=== PATIENT | female | born 1975 | race Caucasian/White ===

== ENCOUNTER 2017-06-17 13:06 | Emergency (ER) | payer SELFPAY | END 2017-06-17 15:50 | disposition home or self-care (01) | LOC: D.ER 13:06 | DX: M54.6 Pain in thoracic spine (principal); V89.2XXA Person injured in unspecified motor-vehicle accident, traffic, initial encounter; Y93.89 Activity, other specified; Y92.410 Unspecified street and highway as the place of occurrence of the external cause; F17.200 Nicotine dependence, unspecified, uncomplicated ==

== ENCOUNTER 2018-12-25 15:03 | Emergency (ER) | payer SELFPAY ==
[~2018-12-25] VITALS: Ht 152.4 cm; Wt 45.5 kg
[2018-12-25 15:13] VITALS: Ht 152.4 cm; Wt 45.5 kg
[2018-12-25 16:03] LABS: BASOPHILS 0.4 % (0-2); EOSINOPHILS 0 % (0-7); HEMATOCRIT 35.8 % (36.0-48.0); HEMOGLOBIN 12.2 g/dL (12-16); IMMATURE GRANULOCYTES 0.2 % (0-5); LYMPHOCYTES 21.2 % (15-50); MCH 34.8 pg (26.0-34.0); MCHC 34.1 g/dL (31.0-37.0); MEAN PLATELET VOLUME 10.8 fL (7.4-10.4); MONOCYTES 11.7 % (2-11); NEUTROPHILS 66.5 % (40-80); PLATELET COUNT 182 10x3/uL (130-400); RBC 3.51 10x6/uL (4.00-5.40); RDW 14.2 % (11.5-14.5); WBC 5.2 10x3/uL (4.8-10.8)
[2018-12-25 16:24] LABS: HCG SERUM NEGATIVE (NEGATIVE)
[2018-12-25 16:32] LABS: ALBUMIN 3.2 g/dL (3.4-5.0); ALKALINE PHOSPHATASE 116 U/L (46-116); ALT (SGPT) 106 U/L (10-68); BILIRUBIN - TOTAL 1.41 mg/dL (0.2-1.3); CALC OSMOLALITY 265 mosm/kg (275-300); CALCIUM 7.5 mg/dL (8.5-10.1); CARBON DIOXIDE 21.5 mmol/L (21.0-32.0); CHLORIDE - SERUM 96 mmol/L (98-107); CREATININE - SERUM 0.6 mg/dL (0.6-1.3); GLUCOSE 110 mg/dL (74-106); POTASSIUM - SERUM 3.4 mmol/L (3.5-5.1); PROTEIN - SERUM 8.4 g/dL (6.4-8.2); SODIUM 134 mmol/L (136-145); UREA NITROGEN 5 mg/dL (7-18); eGFR NON AFRICAN AMERICAN > 90 mL/min (90-120)
[2018-12-25 18:24] LABS: APPEARANCE CLEAR (CLEAR); BILIRUBIN NEGATIVE (NEGATIVE); COLOR YELLOW (YELLOW); GLUCOSE NEGATIVE (NEGATIVE); KETONE NEGATIVE (NEGATIVE); NITRITE NEGATIVE (NEGATIVE); PROTEIN NEGATIVE (NEGATIVE); SPECIFIC GRAVITY 1.005 (1.005-1.020)
[2018-12-25 18:27] LABS: RED CELLS - URINE 0-5 /hpf (0-5); WHITE CELLS - URINE 0-5 /hpf (0-5)
[2018-12-25 18:28] LABS: BACTERIA MANY /hpf (NONE SEEN)
[2018-12-25 19:56] LABS: INR 1.08 (0.85-1.17); PROTIME 13.5 SECONDS (11.6-15.0)
[2018-12-25] MEDS ORDERED: ULTRAM50 MG PO (21:03)
[2018-12-25 21:29] VITALS: BP 154/91
[2018-12-27 13:15] LABS: HEPATITIS C ANTIBODY >11.0 S/CO RAT (0.0-0.9)
== END 2018-12-25 21:29 | disposition home or self-care (01) ==
LOC: D.ER 15:03
PROVIDERS: Emergency Medicine; Family Medicine
DX: R10.2 Pelvic and perineal pain (principal); N91.2 Amenorrhea, unspecified; F10.21 Alcohol dependence, in remission

== ENCOUNTER 2020-06-18 05:15 | Day surgery (SDC) | payer SELFPAY ==
[~2020-06-18] VITALS: Ht 152.4 cm; Wt 68.2 kg
[~2020-06-18 05:15] MED LIST: ULTRAM50 MG PO
[2020-06-18 05:29] VITALS: Ht 152.4 cm; Wt 68.2 kg
[2020-06-18 06:28] LABS: CALC OSMOLALITY 271 mosm/kg (275-300); CALCIUM 8.6 mg/dL (8.5-10.1); CARBON DIOXIDE 24.7 mmol/L (21.0-32.0); CHLORIDE - SERUM 99 mmol/L (98-107); CREATININE - SERUM 0.6 mg/dL (0.6-1.3); GLUCOSE 117 mg/dL (74-106); POTASSIUM - SERUM 3.7 mmol/L (3.5-5.1); SODIUM 136 mmol/L (136-145); UREA NITROGEN 11 mg/dL (7-18); eGFR NON AFRICAN AMERICAN > 90 mL/min (90-120)
[2020-06-18 06:30] LABS: HCG SERUM NEGATIVE (NEGATIVE)
[2020-06-18 06:33] LABS: HEMATOCRIT 43.6 % (36.0-48.0); HEMOGLOBIN 14.3 g/dL (12-16); MCH 33.6 pg (26.0-34.0); MCHC 32.8 g/dL (31.0-37.0); MCV 102.3 fL (80.0-100.0); MEAN PLATELET VOLUME 10.1 fL (7.4-10.4); PLATELET COUNT 209 10x3/uL (130-400); RBC 4.26 10x6/uL (4.00-5.40); RDW 12.9 % (11.5-14.5)
[2020-06-18 06:35] LABS: INR 0.94 (0.85-1.17); PROTIME 12.5 SECONDS (11.6-15.0)
[2020-06-18 06:37] LABS: ALBUMIN 3.7 g/dL (3.4-5.0); ALKALINE PHOSPHATASE 127 U/L (30-120); ALT (SGPT) 100 U/L (10-68); BILIRUBIN - TOTAL 0.45 mg/dL (0.2-1.3); PROTEIN - SERUM 8.7 g/dL (6.4-8.2)
[2020-06-18 07:15] LABS: BILIRUBIN NEGATIVE (NEGATIVE); GLUCOSE NEGATIVE (NEGATIVE); KETONE NEGATIVE (NEGATIVE); NITRITE NEGATIVE (NEGATIVE); UROBILINOGEN NORMAL (NORMAL)
[2020-06-18 07:24] VITALS: BP 126/75
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
[2020-06-18 08:19] LABS: EOSINOPHILS 3 % (0-7); LYMPHOCYTES 51 % (15-50); MONOCYTES 10 % (2-11); NEUTROPHILS 34 % (40-80); PLATELET ESTIMATE NORMAL
[2020-06-18] MEDS ORDERED: HYDROCODON-ACE1 EA10 PO (08:23)
[2020-06-18] MEDS ORDERED: KEFLEX500 MG PO (08:24)
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
== END 2020-06-18 11:40 | disposition home or self-care (01) ==
LOC: D.ER 05:15 → D.OPS 06:55 → D.ER 07:25 → D.OPS 11:40
PROVIDERS: Family Medicine; ATTEND Orthopaedic Surgery
DX: S62.631B Displaced fracture of distal phalanx of left index finger, initial encounter for open fracture (principal); S62.635B Displaced fracture of distal phalanx of left ring finger, initial encounter for open fracture; F10.129 Alcohol abuse with intoxication, unspecified; Y90.8 Blood alcohol level of 240 mg/100 ml or more; W22.8XXA Striking against or struck by other objects, initial encounter; Y93.9 Activity, unspecified; Y92.9 Unspecified place or not applicable